=== PATIENT | male | born 1955 | race Caucasian/White ===

== ENCOUNTER 2022-02-22 11:55 | Outpatient (CLI) | payer MEDICARE ==
[2022-02-22 13:05] LABS: Hemoglobin 14.9 g/dL (13.5-17.5); Mean Corpuscular HGB CONC 30.2 g/dL (32.0-36.0); Mean Corpuscular Hemoglobin 24.3 pg (27.0-33.0); Mean Corpuscular Volume 80.6 fl (81.2-95.1); Mean Platelet Volume 10.3 fl (7.4-10.4); Platelet Count 277 10x3/uL (150-450); RBC Distribution Width 19.5 % (11.5-14.5); Red Blood Cell (RBC) Count 6.13 10x6/uL (4.32-5.72); White Blood Cell (WBC) Count 8.9 10x3/uL (3.5-10.5)
[2022-02-22 13:23] LABS: Anion Gap 15 mmol/L (10-20); BUN (Urea Nitrogen) 23 mg/dL (8.4-25.7); Calc. Creatinine Clearance 0 mL/min (70-130); Carbon Dioxide 32 mmol/L (23-31); Chloride 96 mmol/L (98-107); Glucose 117 mg/dL (80-115); Potassium 4.5 mmol/L (3.5-5.1); Sodium 138 mmol/L (136-145)
== END 2022-02-22 11:56 | disposition home or self-care (01) ==
LOC: CSHLAB 11:55
PROVIDERS: ATTEND Podiatrist
DX: Z01.818 Encounter for other preprocedural examination (principal); Z20.822 Contact with and (suspected) exposure to COVID-19; L97.519 Non-pressure chronic ulcer of other part of right foot with unspecified severity
CPT/HCPCS: 80048; 85027; 93005; 93010; U0003; U0005

== ENCOUNTER 2022-02-27 09:46 | Day surgery (SDC) | payer MEDICARE ==
[2022-02-25 15:39] VITALS: BMI 47.5
[2022-02-27] MEDS ORDERED: Lidocaine 1% MPF 2 ML VIAL ONE (10:56)
[2022-02-27] MEDS ORDERED: Bupivacaine PF 0.5% 30 ML VIAL ONE (11:35)
[2022-02-27] MEDS ORDERED: Neomycin-Polymyxin 1 ML AMP ONE (11:35)
[2022-02-27] MEDS ORDERED: Midazolam HCl 2 mg/2 ml Vial ONE (11:44)
[2022-02-27] MEDS ORDERED: HYDROmorphone 0.5 MG/0.5 ML SYRINGE ONE ×2 (11:46→11:47)
[2022-02-27] MEDS ORDERED: Ketamine 50 MG/ML (10ML VIAL) ONE (11:46)
[2022-02-27] MEDS ORDERED: Dexamethasone 20 MG/5 ML VIAL ONE (11:50)
[2022-02-27] MEDS ORDERED: Ondansetron PF 4 MG/2 ML Vial ONE (11:50)
[2022-02-27] MEDS ORDERED: Succinylcholine 200 MG/10 ml SYRINGE FS ONE (11:50)
[2022-02-27] MEDS ORDERED: Lidocaine 2% PF 5 ML VIAL ONE (11:50)
[2022-02-27] MEDS ORDERED: Fentanyl 100 MCG/2 ML VIAL ONE (11:51)
[2022-02-27] MEDS ORDERED: PROPOFOL 40 ML ONE (11:51)
[2022-02-27] MEDS ORDERED: Clindamycin/D5W 900 mg/50 ml Premix Bag ONE (11:55)
[2022-02-27] MEDS ORDERED: ePHEDrine Sulfate 50 MG/10 ML VIAL ONE ×2 (12:14→12:27)
[2022-02-27] MEDS ORDERED: Glycopyrrolate 0.2 MG/ML 5 ML SYRINGE ONE (12:24)
[2022-02-27] MEDS ORDERED: PHENYLEPHRINE-NS 100 MCG/ML 10 ML SYRINGE ONE (12:26)
== END 2022-02-27 15:30 | disposition home or self-care (01) ==
LOC: CSHSDC 09:46
PROVIDERS: ATTEND Podiatrist
PROC: 0QBN0ZZ Excision of Right Metatarsal, Open Approach (ICD-10-PCS; principal; 2022-02-27)
DX: E11.621 Type 2 diabetes mellitus with foot ulcer (principal); L97.519 Non-pressure chronic ulcer of other part of right foot with unspecified severity; I87.2 Venous insufficiency (chronic) (peripheral); E11.51 Type 2 diabetes mellitus with diabetic peripheral angiopathy without gangrene; I25.10 Atherosclerotic heart disease of native coronary artery without angina pectoris; I10 Essential (primary) hypertension; E78.5 Hyperlipidemia, unspecified; J44.9 Chronic obstructive pulmonary disease, unspecified; G47.33 Obstructive sleep apnea (adult) (pediatric); I42.9 Cardiomyopathy, unspecified; E66.9 Obesity, unspecified; Z68.42 Body mass index [BMI] 45.0-49.9, adult; Z87.891 Personal history of nicotine dependence; Z79.02 Long term (current) use of antithrombotics/antiplatelets; Z79.4 Long term (current) use of insulin; Z79.82 Long term (current) use of aspirin; Z79.84 Long term (current) use of oral hypoglycemic drugs; Z79.899 Other long term (current) drug therapy; Z88.0 Allergy status to penicillin; Z89.411 Acquired absence of right great toe; Z89.412 Acquired absence of left great toe; Z89.422 Acquired absence of other left toe(s); Z95.1 Presence of aortocoronary bypass graft; Z95.820 Peripheral vascular angioplasty status with implants and grafts
CPT/HCPCS: J1100; J1170; J2001; J2250; J2405; J2704; J3010; J3490; S0020

== ENCOUNTER 2022-10-21 08:33 | Outpatient (CLI) | payer MEDICARE | END 2022-10-21 08:34 | disposition home or self-care (01) | LOC: CSHWCC 08:33 | PROVIDERS: ATTEND Nurse Practitioner Family | DX: I87.311 Chronic venous hypertension (idiopathic) with ulcer of right lower extremity (principal); L97.811 Non-pressure chronic ulcer of other part of right lower leg limited to breakdown of skin; R60.0 Localized edema; E11.621 Type 2 diabetes mellitus with foot ulcer; L97.512 Non-pressure chronic ulcer of other part of right foot with fat layer exposed | CPT/HCPCS: 29581; 97139; G0463; 99204 ==

== ENCOUNTER 2022-11-11 08:52 | Outpatient (CLI) | payer MEDICARE | END 2022-11-11 08:53 | disposition home or self-care (01) | LOC: CSHWCC 08:52 | PROVIDERS: ATTEND Nurse Practitioner Family | DX: I87.311 Chronic venous hypertension (idiopathic) with ulcer of right lower extremity (principal); L97.811 Non-pressure chronic ulcer of other part of right lower leg limited to breakdown of skin; R60.0 Localized edema; E11.621 Type 2 diabetes mellitus with foot ulcer; L97.512 Non-pressure chronic ulcer of other part of right foot with fat layer exposed | CPT/HCPCS: 29581 ==

== ENCOUNTER 2022-12-09 09:20 | Outpatient (CLI) | payer MEDICARE | END 2022-12-09 09:21 | disposition home or self-care (01) | LOC: CSHWCC 09:20 | PROVIDERS: ATTEND Nurse Practitioner Family | DX: I87.311 Chronic venous hypertension (idiopathic) with ulcer of right lower extremity (principal); L97.811 Non-pressure chronic ulcer of other part of right lower leg limited to breakdown of skin; R60.0 Localized edema ==

== ENCOUNTER 2023-02-24 10:45 | Outpatient (CLI) | payer MEDICARE | END 2023-02-24 10:46 | disposition home or self-care (01) | LOC: CSHWCC 10:45 | PROVIDERS: ATTEND Nurse Practitioner Family | DX: E11.621 Type 2 diabetes mellitus with foot ulcer (principal); L97.512 Non-pressure chronic ulcer of other part of right foot with fat layer exposed; R60.0 Localized edema | CPT/HCPCS: 97139; G0463; 99213 ==

== ENCOUNTER 2023-03-24 10:48 | Outpatient (CLI) | payer MEDICARE | END 2023-03-24 10:49 | disposition home or self-care (01) | LOC: CSHWCC 10:48 | PROVIDERS: ATTEND Nurse Practitioner Family | DX: R60.0 Localized edema (principal) | CPT/HCPCS: 97139; G0463; 99212 ==

== ENCOUNTER 2024-03-18 13:27 | Emergency (ER) | payer MEDICARE ==
[2024-03-18 14:34] LABS: #Basophils 0.07 10x3/uL (0.0-0.2); #Eosinphils 0.43 10x3/uL (0.0-0.5); #Monocytes 0.57 10x3/uL (0.0-1.1); #Neutrophils 4.19 10x3/uL (1.5-8.4); %Eosinophils 6.1 % (0.0-6.0); %Lymphocytes 25.4 % (18.0-47.0); %Neutrophils 59.1 % (40.0-75.0); Hematocrit 39.5 % (38.8-50.0); Hemoglobin 12.7 g/dL (13.5-17.5); Mean Corpuscular HGB CONC 32.2 g/dL (32.0-36.0); Mean Corpuscular Hemoglobin 26.7 pg (27.0-33.0); Mean Platelet Volume 9.6 fL (7.4-10.4); Platelet Count 314 10x3/uL (150-450); Red Blood Cell (RBC) Count 4.76 10x6/uL (4.32-5.72); White Blood Cell (WBC) Count 7.1 10x3/uL (3.5-10.5)
[2024-03-18 14:45] LABS: ALT (SGPT) 11 U/L (8-55); AST (SGOT) 13 U/L (5-34); Alkaline Phosphatase 98 U/L (40-110); Anion Gap 12 mmol/L (10-20); BUN (Urea Nitrogen) 26 mg/dL (8.4-25.7); Bilirubin, Total 0.4 mg/dL (0.2-1.2); Calc. Creatinine Clearance 0 mL/min (70-130); Calcium 9.8 mg/dL (7.8-10.44); Carbon Dioxide 35 mmol/L (23-31); Chloride 96 mmol/L (98-107); Estimated GFR 59; Globulin 4.6 g/dL (2.4-3.5); Glucose 82 mg/dL (80-115); Potassium 4.4 mmol/L (3.5-5.1); Protein, Total 7.6 g/dL (5.8-8.1); Sodium 139 mmol/L (136-145)
== END 2024-03-18 15:52 | disposition home or self-care (01) ==
LOC: CSHERS 13:27
DX: R22.31 Localized swelling, mass and lump, right upper limb (principal); E11.9 Type 2 diabetes mellitus without complications; I11.0 Hypertensive heart disease with heart failure; I50.9 Heart failure, unspecified; I25.10 Atherosclerotic heart disease of native coronary artery without angina pectoris; Z87.891 Personal history of nicotine dependence
CPT/HCPCS: 80053; 85025